=== PATIENT | female | born 1945 | race Caucasian/White ===

== ENCOUNTER 2016-07-31 10:31 | Emergency (ER) | payer MEDICARE ==
--- NOTE | 2016-07-31 11:20 | CT ---
Exam: CT head without contrast COMPARISON: None INDICATION: Trip and fall, hitting right side of head on wood stove. TECHNIQUE: CT examination of the head was obtained without contrast. FINDINGS: There is some motion artifact at the skull base. There is no acute intracranial hemorrhage. There is no abnormal intra or extra-axial fluid collection. There is no edema, mass effect or midline shift. Ventricles are normal in size. There is no depressed skull fracture. Visualized paranasal sinuses and mastoid air cells are well aerated. IMPRESSION: No acute intracranial abnormality. Report was uploaded to the EMR at 1117 hours 07/31/2016.
== END 2016-07-31 12:51 | disposition home or self-care (01) ==
LOC: ED 10:31
DX: S01.01XA Laceration without foreign body of scalp, initial encounter (principal); S06.0X9A Concussion with loss of consciousness of unspecified duration, initial encounter; W18.30XA Fall on same level, unspecified, initial encounter; Y92.9 Unspecified place or not applicable